=== PATIENT | female | born 1975 | race Caucasian/White ===

== ENCOUNTER 2018-10-16 11:58 | Emergency (ER) | payer SELFPAY ==
[2018-10-16] MEDS ORDERED: NORMAL SALINE 1000 ML 1,000 ML IV ONE ×2 (12:24→16:19)
--- NOTE | 2018-10-16 12:25 | ER Document Report ---
Addendum entered and electronically signed by RADHAMES ALEXANDRE PA-C 10/17/18 21:03: Course - Vital Signs Vital signs: Temp Pulse Resp BP Pulse Ox 98.0 F 11 L 129/88 H 98 10/16/18 19:20 10/16/18 19:00 10/16/18 19:01 10/16/18 19:01 - Laboratory Result Diagrams: 10/16/18 12:29 10/16/18 12:29 Laboratory results interpreted by me: 10/16/18 10/16/18 10/16/18 12:29 12:29 12:48 WBC 17.4 H Hgb 17.1 H Hct 49.3 H MCV 100 H MCH 34.5 H Seg Neutrophils % 86.7 H Lymphocytes % 10.7 L Monocytes % 2.1 L Absolute Neutrophils 15.1 H Carbon Dioxide 19 L Creatinine 0.42 L Glucose 256 H POC Glucose Total Protein 8.8 H Albumin 5.1 H Urine Protein >=500 H Urine Glucose (UA) >=500 H Urine Ketones 80 H Urine Blood SMALL H 10/16/18 17:03 WBC Hgb Hct MCV MCH Seg Neutrophils % Lymphocytes % Monocytes % Absolute Neutrophils Carbon Dioxide Creatinine Glucose POC Glucose 213 H Total Protein Albumin Urine Protein Urine Glucose (UA) Urine Ketones Urine Blood - Transfer of Care Notes: Patient has done well after CT scan. Noted hyperglycemia -- Co2 was 19, but no anion gap. venous PH is reassuring and WNL -- unlikely that this is a DKA picture. Noted elevated WBC -- but not source -- likely this is inflammatory from all of her vomiting. She is now tolerating PO and she feels much better. Will start her on metformin which she has been on before -- but will have her wait 48 hours after contrast before she begins. I have encouraged her to return at any time if her symptoms worsen. She agrees with the plan. Impression: LUQ pain, NV, kidney stone in left kidney, uterine fibroid, hyperglycemia. Patient has done well in the ER here. Will discharge home. Will have her follow treatment plan as discussed above. Addendum entered and electronically signed by RADHAMES ALEXANDRE PA-C 10/16/18 18:50: Course - Vital Signs Vital signs: Temp Pulse Resp BP Pulse Ox 98.2 F 16 124/90 H 100 10/16/18 17:11 10/16/18 17:31 10/16/18 17:31 10/16/18 17:31 - Laboratory Result Diagrams: 10/16/18 12:29 10/16/18 12:29 Laboratory results interpreted by me: 10/16/18 10/16/18 10/16/18 12:29 12:29 12:48 WBC 17.4 H Hgb 17.1 H Hct 49.3 H MCV 100 H MCH 34.5 H Seg Neutrophils % 86.7 H Lymphocytes % 10.7 L Monocytes % 2.1 L Absolute Neutrophils 15.1 H Carbon Dioxide 19 L Creatinine 0.42 L Glucose 256 H POC Glucose Total Protein 8.8 H Albumin 5.1 H Urine Protein >=500 H Urine Glucose (UA) >=500 H Urine Ketones 80 H Urine Blood SMALL H 10/16/18 17:03 WBC Hgb Hct MCV MCH Seg Neutrophils % Lymphocytes % Monocytes % Absolute Neutrophils Carbon Dioxide Creatinine Glucose POC Glucose 213 H Total Protein Albumin Urine Protein Urine Glucose (UA) Urine Ketones Urine Blood Original Note: ED General - General Chief Complaint: Abdominal Pain Stated Complaint: FLANK PAIN Time Seen by Provider: 10/16/18 12:20 Primary Care Provider: JAYLAN BOSWELL [NO LOCAL MD] - Follow up as needed - HPI Notes: 42-year-old female to the emergency department with complaints of epigastric and left upper quadrant abdominal pain that began last night and got significantly worse today. Patient states that early this morning she began to vomit and that her pain localized in the left upper quadrant. She denies any history of alcohol abuse, kidney stones. She does not have a gallbladder. She denies any other current medical problems. She was transported here by medics and they gave her Toradol as well as 4 mg of Zofran. That did not help with her pain. - Related Data Allergies/Adverse Reactions: No Known Allergies Allergy (Unverified 05/08/11 02:22) Past Medical History - General Information source: Patient, Relative - Social History Smoking Status: Current Every Day Smoker Frequency of alcohol use: None Drug Abuse: Marijuana Lives with: Family Family History: Reviewed & Not Pertinent Patient has suicidal ideation: No Patient has homicidal ideation: No - Past Medical History Cardiac Medical History: Denies: Hx Atrial Fibrillation, Hx Congestive Heart Failure, Hx Coronary Artery Disease, Hx Heart Attack, Hx Hypercholesterolemia, Hx Hypertension, Hx Peripheral Vascular Disease, Hx Pulmonary Embolism, Hx Heart Murmur Pulmonary Medical History: Reports: Hx Bronchitis Denies: Hx Asthma, Hx COPD, Hx Pneumonia, Hx Respiratory Failure, Hx Sleep Apnea, Hx Tuberculosis Neurological Medical History: Denies: Hx Seizures Renal/ Medical History: Reports: Hx Ovarian Cysts. Denies: Hx Peritoneal Dialysis, Hx Pelvic Inflammatory Disease Malignancy Medical History: Denies: Hx Breast Cancer, Hx Cervical Cancer, Hx Lung Cancer, Hx Ovarian Cancer GI Medical History: Denies: Hx Crohn's Disease, Hx Gastroesophageal Reflux Disease, Hx Hiatal Hernia, Hx Irritable Bowel, Hx Liver Failure, Hx Pancreatitis, Hx Ulcer Psychiatric Medical History: Reports: Hx Depression Denies: Hx Bipolar Disorder, Hx Post Traumatic Stress Disorder, Hx Schizophrenia Past Surgical History: Reports: Hx Section, Hx Cholecystectomy, Hx Tonsillectomy - age [age], Hx Tubal Ligation. Denies: Hx Appendectomy, Hx Bowel Surgery, Hx Colostomy, Hx Coronary Artery Bypass Graft, Hx Gastric Bypass Surgery, Hx Herniorrhaphy, Hx Hysterectomy, Hx Mastectomy, Hx Pacemaker - Immunizations Hx Diphtheria, Pertussis, Tetanus Vaccination: Yes Review of Systems - Review of Systems Constitutional: Weakness. denies: Chills, Fever EENT: No symptoms reported Cardiovascular: No symptoms reported. denies: Chest pain, Palpitations, Heart racing, Orthopnea, Dyspnea, Syncope, Dizziness, Edema Respiratory: denies: Cough, Short of breath Gastrointestinal: Abdominal pain, Nausea, Vomiting. denies: Diarrhea Genitourinary: No symptoms reported. denies: Frequency, Flank pain Musculoskeletal: No symptoms reported Skin: No symptoms reported Hematologic/Lymphatic: No symptoms reported Neurological/Psychological: No symptoms reported -: Yes All other systems reviewed and negative Physical Exam - Vital signs Vitals: BP 190/112 H 10/16/18 12:05 Selected Entries 10/16/18 12:13 Temperature 98.3 F Heart Rate ( 87 Monitors) Respiratory 18 Rate Blood Pressure 188/112 H Interpretation: Normal - General General appearance: Alert In distress: Moderate Notes: Pain distress, grabbing at her left upper quadrant. Actively dry heaving. - HEENT Head: Normocephalic, Atraumatic Eyes: Normal Pupils: PERRL - Respiratory Respiratory status: No respiratory distress Chest status: Nontender Breath sounds: Normal Chest palpation: Normal - Cardiovascular Rhythm: Regular Heart sounds: Normal auscultation Murmur: No - Abdominal Inspection: Obese Distension: No distension Bowel sounds: Normal Tenderness: Tender - Mild epigastric tenderness to palpation, significant left upper quadrant tenderness to palpation. No CVA tenderness. Negative McBurney's, negative rebound, Guarding. No: McBurney's point, Henao's sign, Rebound Organomegaly: No organomegaly - Back Back: Normal, Nontender - Extremities General upper extremity: Normal inspection, Nontender, Normal color, Normal ROM, Normal temperature General lower extremity: Normal inspection, Nontender, Normal color, Normal ROM, Normal temperature, Normal weight bearing. No: Kathryn's sign - Neurological Neuro grossly intact: Yes Cognition: Normal Orientation: AAOx4 [place] Coma Scale Eye Opening: Spontaneous [place]ess[place] Coma Scale Verbal: Oriented [place] Coma Scale Motor: Obeys Commands [place] Coma Scale Total: 15 Speech: Normal Motor strength normal: LUE, RUE, LLE, RLE Sensory: Normal - Psychological Associated symptoms: Normal affect, Normal mood - Skin Skin Temperature: Warm Skin Moisture: Dry Skin Color: Normal Course - Vital Signs Vital signs: Temp Pulse Resp BP Pulse Ox 98.2 F 16 124/90 H 100 10/16/18 17:11 10/16/18 17:31 10/16/18 17:31 10/16/18 17:31 - Laboratory Result Diagrams: 10/16/18 12:29 10/16/18 12:29 Laboratory results interpreted by me: 10/16/18 10/16/18 10/16/18 12:29 12:29 12:48 WBC 17.4 H Hgb 17.1 H Hct 49.3 H MCV 100 H MCH 34.5 H Seg Neutrophils % 86.7 H Lymphocytes % 10.7 L Monocytes % 2.1 L Absolute Neutrophils 15.1 H Carbon Dioxide 19 L Creatinine 0.42 L Glucose 256 H POC Glucose Total Protein 8.8 H Albumin 5.1 H Urine Protein >=500 H Urine Glucose (UA) >=500 H Urine Ketones 80 H Urine Blood SMALL H 10/16/18 17:03 WBC Hgb Hct MCV MCH Seg Neutrophils % Lymphocytes % Monocytes % Absolute Neutrophils Carbon Dioxide Creatinine Glucose POC Glucose 213 H Total Protein Albumin Urine Protein Urine Glucose (UA) Urine Ketones Urine Blood - Transfer of Care Notes: 10/16/18 rounded on patient. Attempted to have her drink oral contrast but she could not tolerate and began to vomit again. She states that her abdominal pain is returned after trying to attempt to drink contrast. Reviewed with her and family has bedside per her permission about her work. Discharge - Discharge Clinical Impression: Upper abdominal pain, Nausea & vomiting, Hyperglycemia, Kidney stone, Uterine fibroid Condition: Stable Disposition: HOME, SELF-CARE Instructions: Abdominal Pain ([facility]), Hyperglycemia ([facility]) Additional Instructions: FOLLOW UP WITH THE PRIMARY CARE CLINIC WITHOUT FAIL ON THURSDAY FOR FURTHER MANAGEMENT OF YOUR ELEVATED BLOOD SUGARS. RETURN IF YOUR SYMPTOMS WORSEN. PUSH FLUIDS. TAKE MEDICINES PRESCRIBED. Prescriptions: Ondansetron [Zofran Odt 4 mg Tablet] 1 - 2 tab PO Q4HP PRN #10 tab.rapdis PRN Reason: Metformin HCl 500 mg PO DAILY #30 tablet Tramadol HCl [Ultram 50 mg Tablet] 50 mg PO Q6H PRN #10 tab PRN Reason: Referrals: [facility] [Provider Group] - 09/19/19
[2018-10-16] MEDS ORDERED: MORPHINE SULFATE 10 MG/ML INJ ONE (12:37)
[2018-10-16] MEDS ORDERED: ONDANSETRON HCL INJ/PF 4 MG/2 ML SDV ONE (12:38)
[2018-10-16] MEDS ORDERED: ONDANSETRON HCL INJ/PF 4 MG/2 ML SDV IV ONE (12:40)
[2018-10-16] MEDS ORDERED: MORPHINE SULFATE 10 MG/ML INJ IV ONE ×2 (12:40→14:24)
[2018-10-16 12:43] LABS: ABSOLUTE BASOPHILS # (AUTO) 0.1 10^3/uL (0.0-0.2); ABSOLUTE LYMPHOCYTES (AUTO) 1.9 10^3/uL (0.5-4.7); ABSOLUTE MONOCYTES (AUTO) 0.4 10^3/uL (0.1-1.4); ABSOLUTE NEUT (AUTO) 15.1 10^3/uL (1.7-8.2); BASOPHILS % (AUTO) 0.4 % (0-2); EOSINOPHILS % (AUTO) 0.1 % (0-6); HEMATOCRIT 49.3 % (36.0-47.0); HEMOGLOBIN 17.1 g/dL (12.0-15.5); LYMPHOCYTES % (AUTO) 10.7 % (13-45); MEAN CORPUSCULAR HEMOGLOBIN 34.5 pg (27.0-33.4); MEAN CORPUSCULAR HGB CONC 34.7 g/dL (32.0-36.0); MEAN CORPUSCULAR VOLUME 100 fl (80-97); MONOCYTES % (AUTO) 2.1 % (3-13); RED BLOOD COUNT 4.95 10^6/uL (3.72-5.28); RED CELL DISTRIBUTION WIDTH 13.9 % (11.5-14.0); SEGMENTED NEUTROPHILS % (AUTO) 86.7 % (42-78); TOTAL CELLS COUNTED % (AUTO) 100 %; WHITE BLOOD COUNT 17.4 10^3/uL (4.0-10.5)
[2018-10-16 12:59] LABS: ALANINE AMINOTRANSFERASE 13 U/L (9-52); ALBUMIN 5.1 g/dL (3.5-5.0); ALKALINE PHOSPHATASE 93 U/L (38-126); ANION GAP 17 (5-19); ASPARTATE AMINO TRANSFERASE 25 U/L (14-36); BILIRUBIN,DIRECT 0.4 mg/dL (0.0-0.4); BILIRUBIN,TOTAL 0.9 mg/dL (0.2-1.3); BLOOD UREA NITROGEN 8 mg/dL (7-20); CALCIUM 10.1 mg/dL (8.4-10.2); CARBON DIOXIDE 19 mmol/L (22-30); CHLORIDE 103 mmol/L (98-107); GLUCOSE 256 mg/dL (75-110); LIPASE 35.8 U/L (23-300); POTASSIUM 4.1 mmol/L (3.6-5.0); SODIUM 138.7 mmol/L (137-145); TOTAL PROTEIN 8.8 g/dL (6.3-8.2)
[2018-10-16 13:01] LABS: PLATELET COUNT 190 10^3/uL (150-450)
[2018-10-16 13:06] LABS: APPEARANCE,URINE SLIGHTLY-CLOUDY; BILIRUBIN,URINE NEGATIVE (NEGATIVE); COLOR,URINE YELLOW; GLUCOSE, URINE >=500 mg/dL (NEGATIVE); KETONES,URINE 80 mg/dL (NEGATIVE); LEUKOCYTE ESTERASE,URINE NEGATIVE (NEGATIVE); NITRITE,URINE NEGATIVE (NEGATIVE); PROTEIN,URINE >=500 mg/dL (NEGATIVE); UROBILINOGEN,URINE NEGATIVE mg/dL (<2.0)
[2018-10-16] MEDS ORDERED: METOCLOPRAMIDE HCL INJ/PF 10 MG/2 ML SDV IV ONE (14:09)
--- NOTE | 2018-10-16 15:22 | RADIOLOGY REPORT (SQ) ---
EXAM DESCRIPTION: CT ABD/PELVIS WITH IV ONLY COMPLETED DATE/TIME: 10/16/2018 2:41 pm REASON FOR STUDY: Diffuse abdominal pain. COMPARISON: None. TECHNIQUE: CT scan of the abdomen and pelvis performed using helical scanning technique with dynamic intravenous contrast injection. No oral contrast. Images reviewed with lung, soft tissue, and bone windows. Reconstructed coronal and sagittal MPR images reviewed. Delayed images for evaluation of the urinary system also acquired. All images stored on PACS. All CT scanners at this facility use dose modulation, iterative reconstruction, and/or weight based d osing when appropriate to reduce radiation dose to as low as reasonably achievable (ALARA). [facility]: Dose Right [facility]: CareDose [facility]: Dose Right [facility]: Teradose 4D [facility]: PHRQL CONTRAST TYPE AND DOSE: contrast/concentration: Isovue 350.00 mg/ml; Total Contrast Delivered: 70.0 ml; Total Saline Delivered: 65.0 ml RENAL FUNCTION: Creatinine: 0.42. RADIATION DOSE: CT Rad equipment meets quality standard of care and radiation dose reduction techniq ues were employed. CTDIvol: 5.9 - 8.1 mGy. DLP: 663 mGy-cm.. LIMITATIONS: None. FINDINGS: LOWER CHEST: No abnormality. LIVER: No abnormality. SPLEEN: No abnormality. PANCREAS: No abnormality. GALLBLADDER: Status post cholecystectomy. ADRENAL GLANDS: No abnormality. RIGHT KIDNEY AND URETER: No solid masses. No significant calcifications. No hydronephrosis or hyd roureter. LEFT KIDNEY AND URETER: Nonobstructive calculus lower pole left kidney. AORTA AND VESSELS: No aneurysm. No dissection. Renal arteries, SMA, celiac without stenosis. RETROPERITONEUM: No retroperitoneal adenopathy, hemorrhage or masses. BOWEL AND PERITONEAL CAVITY: Small hiatal hernia. APPENDIX: Normal. PELVIS: Uterus: There is a a mass noted in the posterior left side of the uterus which could represe nt fibroid. The left ovary is prominent measuring 4 x 2.5 x 3.4 cm ABDOMINAL WALL: No masses. No hernias. BONES: Minimal lumbar spondylosis. IMPRESSION: Findings consistent with uterine fibroid posterior body of uterus. Nonobstructive calcu sylwia lower pole left kidney. TECHNICAL DOCUMENTATION: JOB ID: [id number] Quality ID # [id number]: Final reports with documentation of one or more dose reduction techniques (e.g., Au tomated exposure control, adjustment of the mA and/or kV according to patient size, use of iterative reconstruction technique) 2010 [employer]- All Rights Reserved Reading location - IP/workstation name: [email or web address]
[2018-10-16 17:20] LABS: VENOUS BLOOD BASE EXCESS -4.1 mmol/L; VENOUS BLOOD HCO3 21.2 mmol/L (20-32); VENOUS BLOOD PCO2 39.9 mmHg (35-63); VENOUS BLOOD PH 7.34 (7.30-7.42)
[2018-10-16 19:03] VITALS: BP 129/88
== END 2018-10-16 19:29 | disposition home or self-care (01) ==
LOC: ER 11:58
DX: R10.10 Upper abdominal pain, unspecified (principal); R11.2 Nausea with vomiting, unspecified; R73.9 Hyperglycemia, unspecified; N20.0 Calculus of kidney; D25.9 Leiomyoma of uterus, unspecified; R10.9 Unspecified abdominal pain; R10.12 Left upper quadrant pain; F17.200 Nicotine dependence, unspecified, uncomplicated; F12.10 Cannabis abuse, uncomplicated
CPT/HCPCS: 96376; 99284; 96374; 96375; 36415; 82962; 83690; 85025; 81025; 80053; 81001; 82803; 74177; J2765; J2270; J2405; J7030

== ENCOUNTER 2019-09-23 11:31 | Emergency (ER) | payer SELFPAY ==
[2019-09-23 13:05] LABS: HEMOGLOBIN 15.8 g/dL (12.0-15.5); MEAN CORPUSCULAR HEMOGLOBIN 30.6 pg (27.0-33.4); MEAN CORPUSCULAR HGB CONC 33.6 g/dL (32.0-36.0); MEAN CORPUSCULAR VOLUME 91 fl (80-97); PLATELET COUNT 290 10^3/uL (150-450); RED BLOOD COUNT 5.17 10^6/uL (3.72-5.28); WHITE BLOOD COUNT 20.7 10^3/uL (4.0-10.5)
[2019-09-23 13:24] LABS: ALBUMIN 5.3 g/dL (3.5-5.0); ALKALINE PHOSPHATASE 108 U/L (38-126); ANION GAP 15 (5-19); ASPARTATE AMINO TRANSFERASE 19 U/L (14-36); BILIRUBIN,TOTAL 0.8 mg/dL (0.2-1.3); BLOOD UREA NITROGEN 15 mg/dL (7-20); CALCIUM 10.3 mg/dL (8.4-10.2); CARBON DIOXIDE 22 mmol/L (22-30); CHLORIDE 98 mmol/L (98-107); GLUCOSE 238 mg/dL (75-110); POTASSIUM 4.1 mmol/L (3.6-5.0); TOTAL PROTEIN 8.9 g/dL (6.3-8.2)
[2019-09-23] MEDS ORDERED: ONDANSETRON HCL INJ/PF 4 MG/2 ML SDV IV ONE (13:24)
[2019-09-23] MEDS ORDERED: NORMAL SALINE 1000 ML 1,000 ML IV ONE ×2 (13:24→21:02)
[2019-09-23] MEDS ORDERED: FAMOTIDINE INJ/PF 20 MG/2 ML SDV IV ONE (13:26)
--- NOTE | 2019-09-23 13:26 | ER Document Report ---
ED GI/ - General Mode of Arrival: Ambulatory Information source: Patient - HPI Patient complains to provider of: Abdominal pain, Vomiting Onset: Yesterday Timing/Duration: Worse Quality of pain: Achy Pain Level: 1 Location: Other - Upper abdomen Associated symptoms: Nausea, Vomiting. denies: Diarrhea, Loss of appetite, Urinary hesitancy, Urinary frequency, Urinary retention Exacerbated by: Denies Relieved by: Denies Similar symptoms previously: No Recently seen / treated by doctor: No - Related Data Home Medications: metformin. HTN meds <KAMLESH BOWIE - Last Filed: 09/23/19 20:16> <LISANDRA VALLES - Last Filed: 09/24/19 06:18> - General Chief Complaint: Vomiting Stated Complaint: NAUSEA/VOMITING Time Seen by Provider: 09/23/19 12:51 Notes: She presents complaining of abdominal pain after eating that started yesterday. Patient reports nausea vomiting times numerous episodes today. Patient denies any diarrhea. Patient complains of mild tenderness to abdomen now stating that it is only sore from vomiting so much. Patient states she has been unable to take her usual medications due to the vomiting. (KAMLESH BOWIE) - Related Data Allergies/Adverse Reactions: No Known Allergies Allergy (Unverified 05/08/11 02:22) Past Medical History - General Information source: Patient Last Menstrual Period: current - Social History Smoking Status: Current Every Day Smoker Frequency of alcohol use: None Drug Abuse: None Occupation: [employer] Family History: Reviewed & Not Pertinent Patient has homicidal ideation: No - Past Medical History Cardiac Medical History: Reports: Hx Coronary Artery Disease, Hx Heart Attack, Hx Hypertension Pulmonary Medical History: Reports: Hx Bronchitis Neurological Medical History: Denies: Hx Seizures Endocrine Medical History: Reports: Hx Diabetes Mellitus Type 2 Renal/ Medical History: Reports: Hx Ovarian Cysts. Denies: Hx Peritoneal Dialysis, Hx Pelvic Inflammatory Disease Psychiatric Medical History: Reports: Hx Depression Denies: Hx Bipolar Disorder, Hx Post Traumatic Stress Disorder, Hx Schizophrenia Past Surgical History: Reports: Hx Section, Hx Cholecystectomy, Hx Tonsillectomy - age [age], Hx Tubal Ligation - Immunizations Hx Diphtheria, Pertussis, Tetanus Vaccination: Yes <KAMLESH BOWIE - Last Filed: 09/23/19 20:16> Review of Systems - Review of Systems Constitutional: No symptoms reported. denies: Fever, Recent illness EENT: No symptoms reported Cardiovascular: No symptoms reported. denies: Chest pain Respiratory: No symptoms reported. denies: Cough, Short of breath Gastrointestinal: Abdominal pain, Nausea, Vomiting. denies: Diarrhea Genitourinary: No symptoms reported. denies: Dysuria Female Genitourinary: No symptoms reported Musculoskeletal: No symptoms reported. denies: Back pain, Neck pain Skin: No symptoms reported Hematologic/Lymphatic: No symptoms reported Neurological/Psychological: No symptoms reported. denies: Headaches <KAMLESH BOWIE - Last Filed: 09/23/19 20:16> Physical Exam - General General appearance: Appears well, Alert In distress: None - HEENT Head: Normocephalic, Atraumatic Eyes: Normal Conjunctiva: Normal Nasal: Normal Mouth/Lips: Normal Mucous membranes: Normal Neck: Normal, Supple. No: Lymphadenopathy - Respiratory Respiratory status: No respiratory distress Chest status: Nontender Breath sounds: Normal. No: Rales, Rhonchi, Stridor, Wheezing Chest palpation: Normal - Cardiovascular Rhythm: Regular Heart sounds: S1 appreciated, S2 appreciated - Abdominal Inspection: Normal Distension: No distension Bowel sounds: Normal Tenderness: Tender - epigastric area. No: Guarding Organomegaly: No organomegaly - Back Back: Normal, Nontender. No: CVA tenderness - Extremities General upper extremity: Normal inspection, Normal strength General lower extremity: Normal inspection, Normal strength - Neurological Neuro grossly intact: Yes Cognition: Normal Alessandro Coma Scale Eye Opening: Spontaneous [place] Coma Scale Verbal: Oriented [place] Coma Scale Motor: Obeys Commands Alessandro Coma Scale Total: 15 - Psychological Associated symptoms: Normal affect, Normal mood - Skin Skin Temperature: Warm Skin Moisture: Dry Skin Color: Normal <KAMLESH BOWIE - Last Filed: 09/23/19 20:16> - Vital signs Vitals: Temp Pulse Resp BP 98.7 F 80 18 209/95 H 09/23/19 11:55 09/23/19 11:55 09/23/19 11:55 09/23/19 11:55 Course - Laboratory Result Diagrams: 09/23/19 12:50 09/23/19 12:50 <KAMLESH BOWIE - Last Filed: 09/23/19 20:16> - Laboratory Result Diagrams: 09/23/19 12:50 09/23/19 12:50 <LISANDRA VALLES - Last Filed: 09/24/19 06:18> - Re-evaluation Re-evalutation: 09/23/19 14:30 Patient's nausea improved. Patient given a small sip of water and took her blood pressure medications. 09/23/19 15:13 RN called stating that patient vomited her medicines up and pills were visible in the emesis. Consulted with Dr. Madrigal who recommends giving hydralazine 10 or 20 mg at this time to manage her blood pressure. Patient with leukocytosis greater than 20,000, will add CT imaging to further evaluate her symptoms. 09/23/19 16:40 Patient's abdomen soft, no guarding. Patient had modest improvement of nausea symptoms with Compazine, will give additional dose at this time. Patient without any chest pain or headache pain. Patient only complains of nausea symptoms. Patient continues to dry heave in room. 09/23/19 18:[address] Mcdowell regarding patient's persistent hypertension as well as nausea and vomiting. Recommends adding on CT scan of the head and giving labetalol IV now. Recommends obtaining urine drug screen as well. 09/23/19 20:18 Report and handoff given to CELESTE Hamilton (KAMLESH BOWIE) Patient is urine shows elevated specific gravity with 80 ketones. Patient was given additional IV fluids. I did reevaluate patient at bedside. She has been able to drink fluids and eat ice chips without any difficulty. She did states she feels much better, she is clinically well-appearing. On my evaluation patient is not tachycardic, her blood pressure is trending downwards. I discussed details with patient. She is positive for marijuana, she admits that she smokes cannabis on a daily basis. Based on her negative work-up in this fact I highly suspect cyclic vomiting syndrome. I did discuss this with patient, she does state understanding. Patient was given an oral dose of Haldol, she also tolerated this, patient was discharged with Phenergan, famotidine, follow-up instructions, return precautions. Patient states understanding and agreement with plan. (LISANDRA VALLES) - Vital Signs Vital signs: Temp Pulse Resp BP Pulse Ox 98.7 F 113 H 19 121/92 H 97 09/24/19 01:00 09/23/19 17:37 09/24/19 01:05 09/24/19 01:05 09/24/19 01:05 - Laboratory Laboratory results interpreted by me: 09/23/19 09/23/19 09/23/19 12:50 12:50 19:15 WBC 20.7 H Hgb 15.8 H RDW 15.0 H Seg Neuts % (Manual) 88 H Lymphocytes % (Manual) 8 L Abs Neuts (Manual) 18.2 H Sodium 135.1 L Glucose 238 H Calcium 10.3 H Total Protein 8.9 H Albumin 5.3 H Urine Protein 100 H Urine Glucose (UA) >=500 H Urine Ketones 80 H Urine Blood LARGE H Discharge <KAMLESH BOWIE - Last Filed: 09/23/19 20:16> <LISANDRA VALLES - Last Filed: 09/24/19 06:18> - Discharge Clinical Impression: Dehydration Vomiting Qualifiers: Vomiting type: unspecified Vomiting Intractability: non-intractable Nausea pre sence: with nausea Qualified Code(s): R11.2 - Nausea with vomiting, unspecified Condition: Stable Disposition: HOME, SELF-CARE Additional Instructions: Your work-up shows dehydration. Your overall examination suggests that you have cyclic vomiting syndrome. I recommend that you reduce/avoid cannabis. Take Phenergan for nausea, the famotidine to help recover, start with clear fluids and bland food. Slowly progress. Follow-up with primary care. Return if you worsen including developing abdominal pain or chest pain, fever, uncontrolled vomiting, or any other concerning or worsening symptoms. Prescriptions: Famotidine [Pepcid 20 mg Tablet] 20 mg PO BID #12 tablet Promethazine HCl [Phenergan 25 mg Tablet] 25 mg PO Q6H PRN #15 tablet PRN Reason:
[2019-09-23 13:49] LABS: ABSOLUTE LYMPHOCYTES# (MANUAL) 1.7 10^3/uL (0.5-4.7); ABSOLUTE MONOCYTES # (MANUAL) 0.8 10^3/uL (0.1-1.4); BASOPHILS % (MANUAL) 0 % (0-2); EOSINOPHILS % (MANUAL) 0 % (0-6); LYMPHOCYTES % (MANUAL) 8 % (13-45); MONOCYTES % (MANUAL) 4 % (3-13); SEGMENTED NEUTROPHILS % (MAN) 88 % (42-78); TOTAL CELLS COUNTED 100
[2019-09-23 13:50] LABS: PLATELET COMMENT ADEQUATE; RBC MORPHOLOGY COMMENT NORMO-CYTIC/CHROMIC
[2019-09-23] MEDS ORDERED: HYDRALAZINE HCL INJ/PF 20 MG/1 ML SDV IV ONE ×2 (15:12→17:00)
[2019-09-23] MEDS ORDERED: PROCHLORPERAZINE EDISYLATE INJ 10 MG/2 ML VIAL IV ONE ×2 (15:12→16:39)
[2019-09-23] MEDS ORDERED: DIPHENHYDRAMINE HCL 50 MG/ML VIAL IV ONE ×2 (15:12→16:39)
--- NOTE | 2019-09-23 16:10 | RADIOLOGY REPORT (SQ) ---
EXAM DESCRIPTION: CT ABD/PELVIS WITH IV ONLY IMAGES COMPLETED DATE/TIME: 09/23/2019 3:44 pm REASON FOR STUDY: abd pain, vomiting COMPARISON: 10/16/2018 TECHNIQUE: CT scan of the abdomen and pelvis performed using helical scanning technique with dynamic intravenous contrast injection. No oral contrast. Images reviewed with lung, soft tissue, and bone windows. Reconstructed coronal and sagittal MPR images reviewed. Delayed images for evaluation of the urinary system also acquired. All images stored on PACS. All CT scanners at this facility use dose modulation, iterative reconstruction, and/or weight based d osing when appropriate to reduce radiation dose to as low as reasonably achievable (ALARA). [facility]: Dose Right [facility]: CareDose [facility]: Dose Right [facility]: Teradose 4D [facility]: [place] CONTRAST TYPE AND DOSE: 78 cc Omnipaque 350- low osmolar. RENAL FUNCTION: BUN 15 creatinine 0.54 RADIATION DOSE: CT Rad equipment meets quality standard of care and radiation dose reduction techniq ues were employed. CTDIvol: 6.0 - 8.0 mGy. DLP: 668 mGy-cm.. LIMITATIONS: None. FINDINGS: LOWER CHEST: No significant findings. No nodules or infiltrates. LIVER: Normal size. No masses. No dilated ducts. SPLEEN: Normal size. No focal lesions. PANCREAS: No masses. No significant calcifications. No adjacent inflammation or peripancreatic fluid collections. Pancreatic duct not dilated. GALLBLADDER: No identified stones by CT criteria. No inflammatory changes to suggest cholecystitis. ADRENAL GLANDS: No significant masses or asymmetry. RIGHT KIDNEY AND URETER: No solid masses. No significant calcifications. No hydronephrosis or hyd roureter. LEFT KIDNEY AND URETER: No solid masses. No significant calcifications. No hydronephrosis or hydr oureter. AORTA AND VESSELS: No aneurysm. No dissection. Renal arteries, SMA, celiac without stenosis. RETROPERITONEUM: No retroperitoneal adenopathy, hemorrhage or masses. BOWEL AND PERITONEAL CAVITY: No masses or inflammatory changes. No free fluid or peritoneal masses. APPENDIX: Normal. PELVIS: There is a 31.6 x 18.3 cm apparent cyst in the left adnexa. More inferiorly located within t his cyst is another cystic structure that has slight thickening of the wall. This measures about 13 mm. ABDOMINAL WALL: No masses. No hernias. BONES: No significant or acute findings. OTHER: No other significant finding. IMPRESSION: 1. There appears to be a left ovarian cyst neck contains a smaller cystic structure wit h a slightly thickened wall. Etiology uncertain. Recommend pelvic ultrasound. 2. No other acute or significant finding is seen in the abdomen or pelvis. TECHNICAL DOCUMENTATION: JOB ID: [id number] Quality ID # [id number]: Final reports with documentation of one or more dose reduction techniques (e.g., Au tomated exposure control, adjustment of the mA and/or kV according to patient size, use of iterative reconstruction technique) 2010 [employer]- All Rights Reserved Reading location - IP/workstation name: [email or web address]
--- NOTE | 2019-09-23 18:18 | RADIOLOGY REPORT (SQ) ---
EXAM DESCRIPTION: U/S NON OB PEL TV W/DOPPLER IMAGES COMPLETED DATE/TIME: 09/23/2019 6:07 pm REASON FOR STUDY: abd pain, N/v eval ovary COMPARISON: None. TECHNIQUE: Dynamic and static grayscale images acquired of the pelvis via transvaginal approach and recorded on PACS. Additional selected color Doppler and spectral images recorded. LIMITATIONS: None. FINDINGS: UTERUS: Likely uterine fibroid measuring 2.4 cm. ENDOMETRIAL STRIPE: No focal or generalized thickening. No masses. CERVIX: 3.1 cm. No nabothian cysts. RIGHT OVARY AND DOPPLER: Surgically absent. LEFT OVARY AND DOPPLER: Normal size. No worrisome masses. Normal arterial vascular flow without evide nce for torsion. FREE FLUID: None noted. OTHER: No other significant finding. MEASUREMENTS: UTERUS: 9.2 x 5 x 5 cm. ENDOMETRIAL STRIPE: 1.1 cm. RIGHT OVARY: Surgically absent. LEFT OVARY: 3.2 x 2.6 x 2.5 cm. IMPRESSION: Small uterine fibroid. No other significant finding. TECHNICAL DOCUMENTATION: JOB ID: [id number] [employer]- All Rights Reserved Rev-09/04 Reading location - IP/workstation name: [email or web address]
[2019-09-23] MEDS ORDERED: LABETALOL HCL INJ 20 MG/4 ML DISP.SYRIN IV ONE (18:23)
--- NOTE | 2019-09-23 18:48 | RADIOLOGY REPORT (SQ) ---
EXAM DESCRIPTION: CT HEAD WITHOUT IMAGES COMPLETED DATE/TIME: 09/23/2019 6:39 pm REASON FOR STUDY: HTN, vomiting COMPARISON: None. TECHNIQUE: Axial images acquired through the brain without intravenous contrast. Images reviewed wi th bone, brain and subdural windows. Images stored on PACS. All CT scanners at this facility use dose modulation, iterative reconstruction, and/or weight based d osing when appropriate to reduce radiation dose to as low as reasonably achievable (ALARA). [facility]: Dose Right [facility]: CareDose [facility]: Dose Right [facility]: Teradose 4D [facility]: Smart [place] RADIATION DOSE: CT Rad equipment meets quality standard of care and radiation dose reduction techniq ues were employed. CTDIvol: 53.2 mGy. DLP: 937 mGy-cm. mGy. LIMITATIONS: None. FINDINGS: VENTRICLES: Normal size and contour. CEREBRUM: No masses. No hemorrhage. No midline shift. No evidence for acute infarction. Normal gra y/white matter differentiation. No areas of low density in the white matter. CEREBELLUM: No masses. No hemorrhage. No alteration of density. No evidence for acute infarction. EXTRAAXIAL SPACES: No fluid collections. No masses. ORBITS AND GLOBE: No intra- or extraconal masses. Normal contour of globe without masses. CALVARIUM: No fracture. PARANASAL SINUSES: No fluid or mucosal thickening. SOFT TISSUES: No mass or hematoma. OTHER: No other significant finding. IMPRESSION: NORMAL BRAIN CT WITHOUT CONTRAST. EVIDENCE OF ACUTE STROKE: NO. COMMENT: Quality ID # [id number]: Final reports with documentation of one or more dose reduction techniques (e.g., Automated exposure control, adjustment of the mA and/or kV according to patient size, use of iterative reconstruction technique) TECHNICAL DOCUMENTATION: JOB ID: [id number] 2010 [employer]- All Rights Reserved Reading location - IP/workstation name: [email or web address]
[2019-09-23 19:54] LABS: APPEARANCE,URINE CLOUDY; BILIRUBIN,URINE NEGATIVE (NEGATIVE); COLOR,URINE YELLOW; GLUCOSE, URINE >=500 mg/dL (NEGATIVE); KETONES,URINE 80 mg/dL (NEGATIVE); LEUKOCYTE ESTERASE,URINE NEGATIVE (NEGATIVE); NITRITE,URINE NEGATIVE (NEGATIVE); PROTEIN,URINE 100 mg/dL (NEGATIVE); URINE SPECIFIC GRAVITY 1.035; UROBILINOGEN,URINE NEGATIVE mg/dL (<2.0)
[2019-09-23 20:20] LABS: URINE AMPHETAMINES SCREEN NEGATIVE; URINE BARBITURATES SCREEN NEGATIVE; URINE BENZODIAZEPINES SCREEN NEGATIVE; URINE COCAINE SCREEN NEGATIVE; URINE METHADONE SCREEN NEGATIVE; URINE PHENCYCLIDINE SCREEN NEGATIVE
[2019-09-23 20:23] LABS: URINE MARIJUANA (THC) SCREEN UNCONFIRMED POSITIVE
[2019-09-23] MEDS ORDERED: HALOPERIDOL 5 MG TABLET PO ONE (23:17)
[2019-09-24] MEDS ORDERED: LIDOCAINE 2% VISCOUS SOLN 15 ML UDCUP PO ONE (01:15)
[2019-09-24] MEDS ORDERED: MAG HYDROX/AL HYDROX/SIMETH SUSP 30 ML UDCUP PO ONE (01:15)
[2019-09-24 01:27] VITALS: BP 121/92
--- NOTE | 2019-09-24 20:54 | EKG REPORT ---
SEVERITY:- ABNORMAL ECG - SINUS RHYTHM LEFT ATRIAL ABNORMALITY : Confirmed by: Bonny Pizarro 24-Sep-2019 20:53:46
== END 2019-09-24 01:27 | disposition home or self-care (01) ==
LOC: ER 11:31
DX: E86.0 Dehydration (principal); R11.2 Nausea with vomiting, unspecified; R10.9 Unspecified abdominal pain; F17.200 Nicotine dependence, unspecified, uncomplicated; I25.10 Atherosclerotic heart disease of native coronary artery without angina pectoris; I10 Essential (primary) hypertension; E11.9 Type 2 diabetes mellitus without complications; Z90.49 Acquired absence of other specified parts of digestive tract; Z79.4 Long term (current) use of insulin; I25.2 Old myocardial infarction
CPT/HCPCS: 93005; 96376; 99284; 96361; 96374; 96375; 36415; 83690; 84703; 85025; 80053; 81001; 80307; 76830; 93976; 70450; 74177; 93010; J1200; J0360; J3490 ×2; J0780; J2405; J7030; S0028